=== PATIENT | male | born 1960 | race Caucasian/White ===

== ENCOUNTER 2020-05-09 19:44 | Outpatient (REF) | payer BC, SELFPAY ==
[2020-05-12 10:04] LABS: PSA, Screening 1.2 ng/mL (0.0-4.5)
[2020-05-12 10:53] LABS: IgA 53 mg/dL (85-499)
[2020-05-12 21:25] LABS: Tissue Transglutaminase Ab IgA <1.2 U/mL
== END 2020-05-09 20:04 ==
LOC: NCHCN 19:44
PROVIDERS: PCP Internal Medicine; Visit Provider Internal Medicine
DX: Z00.00 Encounter for general adult medical examination without abnormal findings (principal); E78.5 Hyperlipidemia, unspecified; I10 Essential (primary) hypertension; R10.9 Unspecified abdominal pain; Z12.5 Encounter for screening for malignant neoplasm of prostate
CPT/HCPCS: 82784; 84153; 83516

== ENCOUNTER 2020-07-04 15:47 | Outpatient (REF) | payer BC, SELFPAY ==
[2020-07-04 12:36] LABS: Bilirubin Negative (Negative); Blood Trace-lysed (Negative); Clarity Clear (Clear); Glucose Negative (Negative); Ketones Negative (Negative); Leukocyte Esterase Negative (Negative); Nitrite Negative (Negative); Urobilinogen 0.2 EU/dL (Up TO 0.2)
[2020-07-04 12:47] LABS: Bacteria Negative HPF (Negative); C & S Indicated? No; Casts Negative LPF (Negative); Crystals Negative HPF (Negative); Epithelial Cells Rare HPF (Negative); Mucus Negative (Negative); RBC 0-2 HPF (0-2); WBC 0-2 HPF (0-5)
== END 2020-07-04 16:07 ==
LOC: NCHCN 15:47
PROVIDERS: PCP Internal Medicine; Visit Provider Internal Medicine
DX: R35.0 Frequency of micturition (principal)
CPT/HCPCS: 81003; 81015

== ENCOUNTER 2021-07-01 16:55 | Outpatient (REF) | payer BC, SELFPAY ==
[2021-07-01 21:01] LABS: HCT 46.2 % (40.0-50.0); HGB 15.7 g/dL (13.5-17.5); MCH 31.3 pg (27.0-33.0); MCV 92.2 fL (80-95); MPV 10.2 fL (8.0-11.0); Platelet Count 318 10^3/uL (130-400); RBC 5.01 10^6/uL (4.36-5.78); RDW 12.5 % (11.8-14.1); RDW-SD 42.6 fL
[2021-07-01 21:08] LABS: ALT 61 U/L (16-63); AST 22 U/L (15-37); Albumin 4.2 g/dL (3.4-5.0); Alkaline Phosphatase 55 U/L (46-116); Anion Gap 13.1 mmol/L (3-11); BUN 21 mg/dL (7-18); Bilirubin, Total 0.5 mg/dL (0.2-1.0); CO2 23.9 mmol/L (21.0-32.0); Calcium 9.2 mg/dL (8.5-10.1); Chloride 106 mmol/L (98-107); Glucose 128 mg/dL (74-106); Potassium 3.8 mmol/L (3.5-5.1); Sodium 143 mmol/L (136-145); TSH 1.71 uIU/mL (0.36-3.74); Total Protein 7.1 g/dL (6.4-8.2)
== END 2021-07-01 16:56 | disposition home or self-care (01) ==
LOC: LBN 16:55
PROVIDERS: PCP Internal Medicine; Visit Provider Internal Medicine
DX: R03.0 Elevated blood-pressure reading, without diagnosis of hypertension (principal); R53.83 Other fatigue; Z87.19 Personal history of other diseases of the digestive system; Z00.00 Encounter for general adult medical examination without abnormal findings
CPT/HCPCS: 80053; 85027; 84443

== ENCOUNTER 2022-07-28 17:51 | Outpatient (REF) | payer BC, SELFPAY ==
[2022-07-28 21:16] LABS: Anion Gap 8.4 mmol/L (3-11); BUN 26 mg/dL (7-18); CO2 26.6 mmol/L (21.0-32.0); CREATININE 1.2 mg/dL (0.70-1.30); Calcium 9.4 mg/dL (8.5-10.1); Calculated LDL 149 mg/dL (<100); Chloride 107 mmol/L (98-107); Cholesterol 238 mg/dL (<200); Estimated GFR 68.38 (mL/min/1.73m2); Glucose 98 mg/dL (74-106); HDL Cholesterol 48 mg/dL (40-60); Potassium 4.1 mmol/L (3.5-5.1); Sodium 142 mmol/L (136-145); Triglyceride 207 mg/dL (<150)
[2022-07-29 18:10] LABS: PSA, Screening 2.7 ng/mL (<=4.5)
[2022-07-30 10:39] LABS: Hep A Total Ab w Rflx IgM Positive (Negative)
[2022-07-30 14:46] LABS: Hep A Antibody IgM Negative (Negative)
== END 2022-07-28 17:52 | disposition home or self-care (01) ==
LOC: NCHCN 17:51
PROVIDERS: PCP Internal Medicine; Visit Provider Internal Medicine
DX: Z00.00 Encounter for general adult medical examination without abnormal findings (principal); K76.0 Fatty (change of) liver, not elsewhere classified; Z13.220 Encounter for screening for lipoid disorders; Z12.5 Encounter for screening for malignant neoplasm of prostate
CPT/HCPCS: 80048; 80061; 84153; 86709

== ENCOUNTER 2023-07-29 17:38 | Outpatient (REF) | payer BC, SELFPAY ==
[2023-07-29 18:46] LABS: HCT 46.2 % (40.0-50.0); HGB 16.2 g/dL (13.5-17.5); MCH 31.3 pg (27.0-33.0); MCHC 35.1 % (32.0-36.0); MCV 89 fL (80-95); MPV 9.9 fL (8.0-11.0); Platelet Count 303 10^3/uL (130-400); RBC 5.17 10^6/uL (4.36-5.78); RDW 12.7 % (11.8-14.1); RDW-SD 41.5 fL; WBC 10.53 10^3/uL (4.4-10.8)
[2023-07-29 19:07] LABS: ALT 46 U/L (16-63); AST 23 U/L (15-37); Albumin 4.1 g/dL (3.4-5.0); Alkaline Phosphatase 56 U/L (46-116); Anion Gap 11.8 mmol/L (3-11); BUN 27 mg/dL (7-18); Bilirubin, Total 0.5 mg/dL (0.2-1.0); CO2 25.2 mmol/L (21.0-32.0); CREATININE 1.3 mg/dL (0.70-1.30); Calcium 9.4 mg/dL (8.5-10.1); Chloride 106 mmol/L (98-107); Estimated GFR 61.73 (mL/min/1.73m2); Glucose 108 mg/dL (74-106); Potassium 3.8 mmol/L (3.5-5.1); Sodium 143 mmol/L (136-145); Total Protein 7.5 g/dL (6.4-8.2)
[2023-08-01 09:09] LABS: PSA, Diagnostic 1.8 ng/mL (<=4.5)
[2023-08-01 09:51] LABS: Abs Immature Grans 0.04 10^3/uL (0.0-0.06); Absolute Basophil Count 0.06 10^3/uL (0.0-0.2); Absolute Lymphocyte Count 2.46 10^3/uL (1.2-3.4); Absolute Monocyte Count 0.62 10^3/uL (0.1-0.8); Absolute Neutrophil Count 7.16 10^3/uL (1.2-6.7); Basophils % 0.6; Eosinophils % 2.8; Immature Grans % 0.4; Lymphocytes % 23.1; Monocytes % 5.8; Neutrophils % 67.3
== END 2023-07-29 17:39 | disposition home or self-care (01) ==
LOC: NCHCN 17:38
PROVIDERS: PCP Internal Medicine; Visit Provider Internal Medicine
DX: Z00.00 Encounter for general adult medical examination without abnormal findings (principal)
CPT/HCPCS: 80053; 85027; 84153; 85007

== ENCOUNTER 2024-09-12 19:37 | Outpatient (REF) | payer BC, SELFPAY ==
[2024-09-12 20:12] LABS: Abs Immature Grans 0.01 10^3/uL (0.0-0.06); Absolute Basophil Count 0.06 10^3/uL (0.0-0.2); Absolute Lymphocyte Count 2.52 10^3/uL (1.2-3.4); Absolute Monocyte Count 0.66 10^3/uL (0.1-0.8); Absolute Neutrophil Count 5.11 10^3/uL (1.2-6.7); Basophils % 0.7 %; Eosinophils % 3.5 %; HGB 16.9 g/dL (13.5-17.5); Immature Grans % 0.1 %; Lymphocytes % 29.1 %; MCH 31.8 pg (27.0-33.0); MCHC 35.2 % (32.0-36.0); MCV 90 fL (80-95); MPV 10.1 fL (8.0-11.0); Monocytes % 7.6 %; Platelet Count 315 10^3/uL (130-400); RBC 5.32 10^6/uL (4.36-5.78); RDW 12.6 % (11.8-14.1); RDW-SD 41.6 fL; WBC 8.66 10^3/uL (4.4-10.8)
[2024-09-12 21:08] LABS: Anion Gap 10.7 mmol/L (3-11); BUN 16 mg/dL (7-18); CO2 26.3 mmol/L (21.0-32.0); CREATININE 1.2 mg/dL (0.70-1.30); Calcium 9.5 mg/dL (8.5-10.1); Calculated LDL 140 mg/dL (<100); Chloride 108 mmol/L (98-107); Cholesterol 228 mg/dL (<200); Estimated GFR 67.53 (mL/min/1.73m2); Glucose 80 mg/dL (74-106); HDL Cholesterol 52 mg/dL (>or=40); Potassium 4.3 mmol/L (3.5-5.1); Sodium 145 mmol/L (136-145); TSH 4.52 uIU/mL (0.36-3.74); Triglyceride 181 mg/dL (<150)
[2024-09-13 18:36] LABS: PSA, Screening 2.9 ng/mL (<=4.5)
== END 2024-09-12 19:38 | disposition home or self-care (01) ==
LOC: NCHCN 19:37
PROVIDERS: PCP Internal Medicine; Visit Provider Internal Medicine
DX: Z00.00 Encounter for general adult medical examination without abnormal findings (principal); I10 Essential (primary) hypertension
CPT/HCPCS: 80048; 80061; 84153; 84443; 85025

== ENCOUNTER 2024-10-23 20:01 | Outpatient (REF) | payer BC, SELFPAY ==
[2024-10-23 21:15] LABS: TSH 3.76 uIU/mL (0.36-3.74)
[2024-10-24 12:02] LABS: FREE T4 0.71 ng/dL (0.76-1.46)
[2024-10-24 19:37] LABS: Thyroperoxidase Antibody 1265 U/mL (<=60)
== END 2024-10-23 20:02 | disposition home or self-care (01) ==
LOC: NCHCN 20:01
PROVIDERS: PCP Internal Medicine; Visit Provider Internal Medicine
DX: E02 Subclinical iodine-deficiency hypothyroidism (principal)
CPT/HCPCS: 84439; 84443; 86376

== ENCOUNTER 2025-01-15 21:21 | Outpatient (REF) | payer MEDICARE, SELFPAY ==
[2025-01-15 20:51] LABS: TSH 2.63 uIU/mL (0.36-3.74)
== END 2025-01-15 21:22 | disposition home or self-care (01) ==
LOC: NCHCN 21:21
PROVIDERS: PCP Internal Medicine; Visit Provider Internal Medicine
DX: E06.3 Autoimmune thyroiditis (principal)
CPT/HCPCS: 84439; 84443

== ENCOUNTER 2025-01-17 20:51 | Outpatient (REF) | payer MEDICARE, SELFPAY ==
[2025-01-22 10:25] LABS: Lyme Ab w Rflx to Lyme Confirm Negative (Negative)
[2025-01-24 09:23] LABS: B. miyamotoi PCR Negative (Negative); Babesia divergens/MO-1 Negative (Negative); Ehrlichia muris eauclairensis Negative (Negative)
== END 2025-01-17 20:52 | disposition home or self-care (01) ==
LOC: NCHCN 20:51
PROVIDERS: PCP Internal Medicine; Visit Provider Internal Medicine
DX: M19.09 Primary osteoarthritis, other specified site (principal)
CPT/HCPCS: 87798; 86618

== ENCOUNTER 2025-05-08 16:23 | Outpatient (REF) | payer MEDICARE, SELFPAY ==
[2025-05-08 20:38] LABS: TSH (W/Ref FT4) 2.88 uIU/mL (0.55-4.78)
== END 2025-05-08 16:24 | disposition home or self-care (01) ==
LOC: NCHCN 16:23
PROVIDERS: PCP Internal Medicine; Visit Provider Nurse Practitioner
DX: E06.3 Autoimmune thyroiditis (principal)
CPT/HCPCS: 84443